=== PATIENT | male | born 1960 | race Caucasian/White ===

== ENCOUNTER → 2018-03-26 | Outpatient (CLI) | payer OTHER ==
[~2018-03-26] MED LIST: BENTYL10 MG PO; DIATRIZOATE MEGL/DIATRIZOA SOD 30 ML BTL PO ONE; IOPAMIDOL 370 MG/ML 200 ML INFUS..BTL INJ ONE; LINZESS PO; SODIUM CHLORIDE 0.9% 50ML 50 ML ONE
--- NOTE | 2018-03-26 10:10 | Diagnostic Imaging Report ---
PROCEDURE:CT ABDOMEN AND PELVIS WITH CONTRAST COMPARISON:None. INDICATIONS:Diverticulitis TECHNIQUE: Routine protocol Volumetric CT abdomen and pelvis after ministration of 100 mL Isovue-370 intravenous contrast and 900 mL positive enteric contrast. Multiplanar reformatted images. DLP: 751.40 FINDINGS: Lung bases: Clear. No pleural effusions. Normal heart size. Liver: Midclavicular craniocaudal and 13 cm. Normal. Gallbladder: Normal Pancreas: Normal Spleen: Normal Adrenal glands: Normal Kidneys: 5.5 and 2-0.7 cm simple right renal cysts. Otherwise, normal bilaterally. Ureters and urinary bladder: Normal Prostate and seminal vesicles: Normal Bowel: Normal caliber. Normal appendix. Trace sigmoid diverticulosis. Within the mid sigmoid (image 74, series 2 and 56, series 301) there is a focal region of narrowing (approximately 3 cm in length) and questionable right marginal nodular enhancement measuring about 2 cm in diameter. Peritoneum: Normal Vasculature: 4.8 cm fusiform infrarenal aortic aneurysm with up to 2.5 cm neural thrombosis. The aneurysm arises 2 cm distal to the right renal artery and 2.3 cm from the left renal artery. Iliac arteries are tortuous, but of normal caliber. Lymph nodes: Normal Skeleton: Intact. L4-L5 degenerative disc disease with L4 inferior endplate Schmorl's node. Soft tissues: Left fat-containing inguinal hernia. Otherwise, normal CONCLUSION: 1. Trace sigmoid diverticulosis. No evidence of diverticulitis. 2. Within the mid sigmoid is a short segment of narrowing associated with a questionable 2 cm right lateral wall nodule. While this may represent a focal region of peristalsis it is also concerning for an underlying malignancy. Correlation with colonoscopy results is needed. 3. 4.8 cm fusiform infrarenal aortic aneurysm. Vascular surgery referral recommended. Dictated by: Raffi Hardin M.D. on 03/26/2018 at 10:14 Electronically approved by: Raffi Hardin M.D. on 03/26/2018 at 10:14
--- NOTE | 2018-03-26 14:04 | Diagnostic Imaging Report ---
History: Back pain Comparison studies: None Technique: Sagittal T1, T2 and IR, axial T2 with and without fat sat and axial spin density oblique Intravenous contrast: None Findings: Number of lumbar vertebral bodies: 5 . Soft tissues: Infrarenal abdominal aortic aneurysm measures up to to 4.9 x 4.9 cm (series 6 image 23) . T2 hyperintense renal cysts bilaterally are incompletely characterized. Paraspinal muscles: No signal abnormalities. Well-preserved. No atrophic changes . Lower thoracic cord: Normal in size and signal. The tip of the conus is at T12-L1. Cauda equina:No masses. No arachnoiditis . Vertebrae: Normal in height and signal intensity. No fractures, infection or neoplasm. Degenerative changes: L1-L2 No abnormalities. L2-L3: No abnormalities. L3-L4: Mild spinal canal stenosis due to a disc bulge. Patent foramina. No disc herniation. L4-L5: Mildly degenerated disc. Subtle Modic inflammatory changes along the end plates on the left and around a Schmorl's node along the inferior endplate of L4. Moderate spinal canal stenosis is due to a right asymmetric disc bulge and facet arthrosis. No significant foraminal stenosis. No disc herniation. L5-S1: No abnormalities. Partially visualized sacrum: None . IMPRESSION: 1. Mildly degenerated disc at L4-5. Inflammatory changes along the endplates on the right. 2. Superimposed moderate spinal canal stenosis but no significant foraminal stenosis. 3. Otherwise, no additional significant lumbar abnormalities 4. Incidental fusiform infrarenal abdominal aortic aneurysm measures up to 4.9 x 4.9 cm. Recommend further evaluation with a CTA of the abdomen and pelvis. Signed by: Dr. Tomas Morales M.D. on 03/26/2018 6:13 PM
== END ==
LOC: MRI 07:18
PROVIDERS: ATTEND Internal Medicine Gastroenterology
DX: R10.9 Unspecified abdominal pain (principal); Z87.19 Personal history of other diseases of the digestive system
CPT/HCPCS: 72148; 74177; Q9967

== ENCOUNTER → 2018-04-10 | Day surgery (SDC) | payer OTHER ==
[~2018-04-10] MED LIST changes: +ATORVASTATIN CA40 MG PO; -DIATRIZOATE MEGL/DIATRIZOA SOD 30 ML BTL PO ONE; +FENTANYL CITRATE/PF 100MCG/2 ML INJ ONE; +GEMFIBROZIL600 MG PO; +HYOSCYAMINE SULFATE 0.5 MG/ML AMP ONE; -IOPAMIDOL 370 MG/ML 200 ML INFUS..BTL INJ ONE; +LIDOCAINE HCL 2% LOCAL INJ 5 ML SDV VIAL INJ ONE; +MIDAZOLAM HCL 2 MG/2 ML VIAL ONE; +PANTOPRAZOLE SO40 MG PO; +PROPOFOL IV EMULSION 10 MG/ML 50 ML VIAL ONE; -SODIUM CHLORIDE 0.9% 50ML 50 ML ONE
--- NOTE | 2018-04-10 16:14 | Operative Report ---
DATE OF PROCEDURE: April 10, 2018 REFERRING PHYSICIAN: MACY VILLAR MD PROCEDURE PERFORMED: Colonoscopy and polypectomy. INDICATIONS: Colorectal cancer screening, personal history of colon polyps and abnormal CAT scan. MEDICATION: Patient was done under MAC. Please see anesthesiologist's note. PROCEDURE: With patient in the lateral decubitus position, flexible fiberoptic Olympus colonoscope was inserted into the rectum with ease advanced all the way to the cecum. The scope was then withdrawn slowly. Mucosa overlying the cecum, ascending colon appeared to be within normal limits. Two polyps were snared and 1 polyp was hot biopsied from the transverse colon. One polyp was snared and 1 polyp was hot biopsied from the descending colon. Diverticular disease was noted to involve the sigmoid colon. Four polyps were hot biopsied from the rectum. The scope was then retroflexed into the distal rectum and small internal hemorrhoids were noted, none of which was actively bleeding. The scope was then straightened out. The scope was subsequently withdrawn. Patient tolerated the procedure well. IMPRESSION: 1. Transverse colon polyps, 2 snared and 1 hot biopsied. 2. Descending colon polyps times 2, 1snared and 1 hot biopsied. 3. Diverticulosis. 4. Rectal polyps times 4, hot biopsied. 5. Internal hemorrhoids, none actively bleeding. PLAN: Follow up histology. Initiate high-fiber, low-fat diet. Initiate high-fiber supplement. Patient will need a followup colonoscopy in 3 years. Job#: [id number] GH cc:MACY VILLAR MD
== END | disposition home or self-care (01) ==
LOC: OR 15:30
PROVIDERS: ATTEND Internal Medicine Gastroenterology
DX: K63.89 Other specified diseases of intestine (principal); D12.3 Benign neoplasm of transverse colon; D12.4 Benign neoplasm of descending colon; K62.1 Rectal polyp; R93.3 Abnormal findings on diagnostic imaging of other parts of digestive tract; K57.30 Diverticulosis of large intestine without perforation or abscess without bleeding; K64.8 Other hemorrhoids; K21.9 Gastro-esophageal reflux disease without esophagitis; I71.4 Abdominal aortic aneurysm, without rupture; N28.1 Cyst of kidney, acquired; E78.5 Hyperlipidemia, unspecified; M54.9 Dorsalgia, unspecified; R00.1 Bradycardia, unspecified; I44.0 Atrioventricular block, first degree; F17.210 Nicotine dependence, cigarettes, uncomplicated; Z88.0 Allergy status to penicillin; Z01.810 Encounter for preprocedural cardiovascular examination
CPT/HCPCS: 45384; 45385; 93005; J1980; J2001; J2250; 45378